=== PATIENT | female | born 1980 | race Two or more races ===

== ENCOUNTER 2016-06-26 14:46 | Emergency (ER) | payer MEDICAID ==
[~2016-06-26 14:46] MED LIST: BACTRIM DS TAB1 EAC2 PO; BENADRYL25 MG PO; IBUPROFEN600 M1 PO; KEFLEX500 M4 PO; NO HOME MEDS; PEN-VEE K500 MG PO; PEPCID20 MG PO; PERCOCET 5-3251 EACH PO; PREDNISONE20 MG PO
[2016-06-26] MEDS ORDERED: NO HOME MEDICATION XX (17:18)
[2016-06-26] MEDS ORDERED: PROAIR HFA8.5 GM INH (18:21)
[2016-06-26] MEDS ORDERED: ZITHROMAX250 M1 PO (18:21)
== END 2016-06-26 18:30 ==
LOC: EDMED 14:46
DX: J18.9 Pneumonia, unspecified organism (principal); Z90.49 Acquired absence of other specified parts of digestive tract; Z98.890 Other specified postprocedural states